=== PATIENT | female | born 1995 | race Caucasian/White ===

== ENCOUNTER 2017-09-20 22:20 | Emergency (ER) | payer OTHER ==
[~2017-09-20] VITALS: Ht 154.9 cm; Wt 80.1 kg
[2017-09-21] MEDS ORDERED: BACTRIM,SEPT1 TABLET PO (01:56)
[2017-09-21] MEDS ORDERED: NORCO 5/3251 TABLET PO (01:56)
[2017-09-21] MEDS ORDERED: CLEOCIN300 MG PO (02:21)
[2017-09-21 02:32] VITALS: BP 103/64
== END 2017-09-21 02:33 | disposition home or self-care (01) ==
LOC: EME 22:20
DX: L02.212 Cutaneous abscess of back [any part, except buttock and flank] (principal); S80.12XA Contusion of left lower leg, initial encounter; Z91.14 Patient's other noncompliance with medication regimen; F17.200 Nicotine dependence, unspecified, uncomplicated
CPT/HCPCS: 99281; 99284

== ENCOUNTER 2017-09-23 11:53 | Emergency (ER) | payer OTHER ==
[~2017-09-23] VITALS: Ht 154.9 cm; Wt 78.8 kg
[~2017-09-23 11:53] MED LIST: BACTRIM,SEPT1 TABLET PO; CLEOCIN300 MG PO; NORCO 5/3251 TABLET PO
[2017-09-23 13:05] LABS: HEMATOCRIT 40.3 % (36.0-46.0); HEMOGLOBIN 13.7 G/DL (11.9-15.5); MCV 85.4 FL (83-99); PLATELET COUNT 336 K/uL (156-360); RBC DIS.WIDTH-CV 13.3 % (11.8-14.6); RBC DIS.WIDTH-SD 41.9 % (39-53); RED BLOOD COUNT 4.72 M/uL (3.80-5.20); WHITE BLOOD COUNT 10.9 K/uL (4.1-10.2)
[2017-09-23 13:17] LABS: CHLORIDE 101 mEq/L (99-109); SODIUM 138 mEq/L (136-147)
[2017-09-23 13:18] LABS: GLUCOSE 75 mg/dL (70-99)
[2017-09-23 13:22] LABS: CREATININE 0.7 mg/dL (0.6-1.3); GFR ESTIMATE (CALCULATED) > 59 mL/min/
[2017-09-23 13:23] LABS: UREA NITROGEN (BUN) 7 mg/dL (9-23)
[2017-09-23 13:33] LABS: QUANTITATIVE HCG < 4.0 MIU/ML
[2017-09-23 15:45] LABS: INTER. NORMALIZED RATIO 1.3
[2017-09-23 15:48] LABS: PTT 27.1 SEC (25-37)
[2017-09-23] MEDS ORDERED: LOVENOX80 MG/0.8 SC (16:30)
[2017-09-23] MEDS ORDERED: COUMADIN5 MG PO (16:30)
[2017-09-23 17:31] VITALS: BP 108/64
== END 2017-09-23 17:31 | disposition home or self-care (01) ==
LOC: EME 11:53
PROVIDERS: Emergency Medicine
DX: I82.432 Acute embolism and thrombosis of left popliteal vein (principal); I82.4Z2 Acute embolism and thrombosis of unspecified deep veins of left distal lower extremity; J45.909 Unspecified asthma, uncomplicated; F17.200 Nicotine dependence, unspecified, uncomplicated
CPT/HCPCS: 80048; 84702; 85027; 85379; 85610; 85730; 93971; 99281; 99285; J1650